=== PATIENT | male | born 1960 | race Caucasian/White ===

== ENCOUNTER 2022-11-13 12:35 | Emergency (ER) | payer OTHER, SELFPAY ==
[2022-11-13 12:48] VITALS: BP 177/95; PULSE 82; RESP 18; TEMP 36.6; O2SAT 94; BMI 28.4
--- NOTE | 2022-11-13 13:48 | ED.EYEPROB ---
HPI - Eye Problem General Chief complaint: Eye Problems Stated complaint: Blurred, spotted vision L eye Time Seen by Provider: 11/13/22 12:58 History of Present Illness HPI Narrative: This 62-year-old male comes in reporting visual changes in his left eye. He states that he noted some floaters over the past week and then for the past 3 days now he has very blurry vision in his left eye only. He does not report any nausea, vomiting, pain, headache, excessive tearing, or neurologic deficit. Related Data Home Medications Medication Instructions Recorded Confirmed albuterol sulfate 90 mcg/actuation 2 puff inhalation Q4-6H PRN 11/13/22 11/13/22 aerosol inhaler mometasone-formoterol HFA 200 2 puff inhalation 11/13/22 mcg-5 mcg/actuation aerosol inhaler (Dulera) montelukast 10 mg tablet 10 mg PO QPM 11/13/22 11/13/22 umeclidinium 62.5 mcg/actuation 1 inh inhalation DAILY 11/13/22 11/13/22 blister powder for inhalation (Incruse Ellipta) Allergies Allergy/AdvReac Type Severity Reaction Status Date / Time No Known Drug Allergies Allergy Verified 11/13/22 12:51 Review of Systems Status of ROS: Reports: 10 or more systems reviewed and unremarkable except as noted in History and below Narrative: Constitutional: No fevers, no weight gain or loss. Eyes: No discharge. Visual changes as described above. HENT: No congestion, no sore throat, no ear pain. Cardiovascular: No chest pain, no palpitations. Respiratory: No shortness of breath, no wheezes, no cough. Gastrointestinal: No abdominal pain, no vomiting, no diarrhea. Genitourinary: No dysuria, no hematuria. Musculoskeletal: Normal range of motion. Skin: No rashes, no pruritis. Neurological: No dizziness, weakness, sensory change, speech change. Endo/Heme/Allergies: No bruising or bleeding. No polydipsia. Pysch: no suicidality, no anxiety, no insomnia. All other systems reviewed and are negative. [facility] Social History Smoking Status: Never smoker How often do you have a drink containing alcohol: 4 or more times a week How many standard drinks containing alcohol do you have on a typical day: 5 or 6 How often do you have six or more drinks on one occasion: Never AUDIT-C Alcohol total score: 6 Non-prescribed substance use: denies use Exam Narrative: Exam Narrative: Constitutional: Well-developed, well-nourished, no acute distress. HEENT: Normocephalic, atraumatic. Right funduscopic exam appears normal. Examination of the left eye shows normal appearing cornea and iris. Through the iris it is only dark bethea appearing. I am not able to see the retina. Neck: Normal range of motion. Nontender. Supple. Heart: Regular. No murmurs. Normal rate. Intact distal pulses. Lungs: Clear to auscultation. No chest discomfort. No wheezes, rhonchi, or rales. Abdomen: Normal bowel sounds. Nontender. No rebound tenderness. Genitalia: Deferred. Back: No midline tenderness. Normal range of motion. Extremities: Normal range of motion. No injury. Skin: Intact. No rash. Warm. No erythema or pallor. Neurologic: No altered sensation. No weakness. Alert and oriented. Psychiatric: No suicidality. No anxiety or depression. No insomnia. Nursing notes and vitals signs are reviewed. Const: Vital Signs, click to edit/add: Vital Signs - 24 hr 11/13/22 12:48 Temperature 97.8 F Pulse Rate [Right Pulse Oximeter] 82 Respiratory Rate 18 Blood Pressure [Ri ght Upper Arm] 177/95 H Pulse Oximetry 94 Oxygen Delivery Me thod Room Air Course Vital Signs Vital signs: Initial Vital Signs Temperature 97.8 F 11/13/22 12:48 Temperature Source Temporal Artery Scan 11/13/22 12:48 Pulse Rate 82 11/13/22 12:48 Respiratory Rate 18 11/13/22 12:48 Blood Pressure 177/95 H 11/13/22 12:48 Blood Pressure Mean 122 H 11/13/22 12:48 Blood Pressure Position Sitting 11/13/22 12:48 Pulse Oximetry 94 11/13/22 12:48 Oxygen Delivery Method Room Air 11/13/22 12:48 Vital Signs Temperature 97.8 F 11/13/22 12:48 Pulse Rate 82 11/13/22 12:48 Respiratory Rate 18 11/13/22 12:48 Blood Pressure 177/95 H 11/13/22 12:48 Pulse Oximetry 94 11/13/22 12:48 Oxygen Delivery Method Room Air 11/13/22 12:48 Temperature 97.8 F 11/13/22 12:48 Pulse Rate 82 11/13/22 12:48 Respiratory Rate 18 11/13/22 12:48 Blood Pressure 177/95 H 11/13/22 12:48 Pulse Oximetry 94 11/13/22 12:48 Oxygen Delivery Method Room Air 11/13/22 12:48 MDM - Eye Problem MDM Narrative Medical decision making narrative: This patient comes in with visual changes in the left eye as described above. He does not describe any flashes of light or a curtain coming down over his vision. He clearly has a change in the funduscopic exam of his left eye with rather opaque appearing findings when looking through the pupil. The patient does not have diabetes or any kind of bleeding or clotting disorder. He may have a cataract that is formed in this eye or possibly some bleeding in the eye. He does not report any trauma. I did speak with Dr. SHERRY hamm at [facility] who will be happy to see him there upon discharge from here to do a dilated eye exam. Discharge Plan Discharge Clinical Impression: Loss of vision Patient Disposition: Home w/ Parent or Adult Condition: Unchanged Additional Instructions: Upon discharge from the ER follow-up with Dr. Huff at [facility], [address] [place] [address]. Prescriptions: No Action montelukast 10 mg tablet 10 mg PO QPM albuterol sulfate 90 mcg/actuation HFA aerosol inhaler 2 puff INHALATION Q4-6H PRN Dulera 200-5 mcg/actuation HFA aerosol inhaler 2 puff INHALATION Incruse Ellipta 62.5 mcg/actuation blister with device 1 inh INHALATION DAILY Follow Up/Referrals: Erica Ramirez PA-C [Primary Care Provider] - Stand Alone Forms: [employer] Info Instructions
== END 2022-11-13 14:06 | disposition home or self-care (01) ==
PROVIDERS: Emergency Provider Emergency Medicine Emergency Medical Services; PCP Physician Assistant Medical
DX: H54.62 Unqualified visual loss, left eye, normal vision right eye (principal)
CPT/HCPCS: 99283; 99284

== ENCOUNTER 2023-05-13 23:10 | Emergency (ER) | payer OTHER, SELFPAY ==
[2023-05-13 23:17] VITALS: BP 153/89; PULSE 96; RESP 16; TEMP 36.4; O2SAT 93; BMI 27.7
--- NOTE | 2023-05-13 23:32 | ED.GENADULT ---
HPI - General Adult General Chief complaint: Extremity Pain/Injury, Lower Stated complaint: Severe pain r knee Time Seen by Provider: 05/13/23 23:32 History of Present Illness HPI narrative: R knee swollen and painful to move starting . slipped on ice on 05/09 but did not fall, felt like he hyper extended the knee. went to work the pain in knee has now become very bad. pain is constant, stays in knee area. worse when bearing wt. denies feeling a pop with the slip. took indomethacin around 1799 and 10 mg of oxycodone around 2129. very little relief after meds. has been applying ice does not help. 62-year-old man presenting to the emergency department with painful swollen right knee. Four days ago had a slip catching himself on the ice but there may have been a mild hyper extension. Was able to ambulate without notable difficulty. Two days ago started to have much more swelling and pain. Hurts to walk flex. Does have suspected history of gout and took some of his indomethacin as well as some residual oxycodone but was not able to get relief. Has also been trying ice. No fever. Has not had any suspected gout in this knee before. Has otherwise been struggling with some congestion in the setting of recent COVID diagnosis. Face feels full. Ears full. Cough. Wondering what he more he can do. Related Data Home Medications Medication Instructions Recorded Confirmed albuterol sulfate 90 mcg/actuation 2 puff inhalation Q4-6H PRN 11/13/22 05/13/23 aerosol inhaler mometasone-formoterol HFA 200 2 puff inhalation 11/13/22 mcg-5 mcg/actuation aerosol inhaler (Dulera) montelukast 10 mg tablet 10 mg PO QPM 11/13/22 05/13/23 umeclidinium 62.5 mcg/actuation 1 inh inhalation DAILY 11/13/22 05/13/23 blister powder for inhalation (Incruse Ellipta) Allergies Allergy/AdvReac Type Severity Reaction Status Date / Time No Known Drug Allergies Allergy Verified 11/13/22 12:51 Review of Systems Status of ROS: Reports: 6 or more systems reviewed and unremarkable except as noted in History and below [facility] Medical History Health care directive on file ?Z78.9 - Other specified health status (ICD-10) Social History Smoking Status: Never smoker How often do you have a drink containing alcohol: 4 or more times a week How many standard drinks containing alcohol do you have on a typical day: 5 or 6 How often do you have six or more drinks on one occasion: Never AUDIT-C Alcohol total score: 6 Non-prescribed substance use: denies use Exam Narrative: Exam Narrative: Pleasant. Clearly quite uncomfortable. Accompanied by spouse. Nasopharyngeal congestion is evident. Intermittent cough. Otherwise breathing easily. Heart in elevated but regular rate. Skin is warm and dry. Right knee is without inflammatory change. Not hypesthetic. Clearly with large anterior knee swelling. Generally tender to palpation. No laxity to varus or valgus stressors. With pain difficult to assess anterior-posterior drawer or Lexi's. I do not see injury to the skin here. Patella is located properly. No defect noted in patellar or flexor tendons or in musculature. Lower extremities without notable edema. Well-perfused. Const: Vital Signs, click to edit/add: Vital Signs - 24 hr 05/13/23 23:17 Temperature 97.6 F Pulse Rate [Left P ulse Oximeter] 96 Respiratory Rate 16 Blood Pressure [Ri ght Upper Arm] 153/89 H Pulse Oximetry 93 Oxygen Delivery Me thod Room Air Documenting provider has reviewed patient's vital signs: yes Course Vital Signs Vital signs: Initial Vital Signs Temperature 97.6 F 05/13/23 23:17 Temperature Source Temporal Artery Scan 05/13/23 23:17 Pulse Rate 96 05/13/23 23:17 Respiratory Rate 16 05/13/23 23:17 Blood Pressure 153/89 H 05/13/23 23:17 Blood Pressure Mean 110 H 05/13/23 23:17 Pulse Oximetry 93 05/13/23 23:17 Oxygen Delivery Method Room Air 05/13/23 23:17 Vital Signs Temperature 97.6 F 05/13/23 23:17 Pulse Rate 96 05/13/23 23:17 Respiratory Rate 16 05/13/23 23:17 Blood Pressure 153/89 H 05/13/23 23:17 Pulse Oximetry 93 05/13/23 23:17 Oxygen Delivery Method Room Air 05/13/23 23:17 Temperature 97.6 F 05/13/23 23:17 Pulse Rate 96 05/13/23 23:17 Respiratory Rate 16 05/13/23 23:17 Blood Pressure 153/89 H 05/13/23 23:17 Pulse Oximetry 93 05/13/23 23:17 Oxygen Delivery Method Room Air 05/13/23 23:17 Medications Administered Medications: Discontinued Medications Generic Name Dose Route Start Last Admin Trade Name Chucky PRN Reason Stop Dose Admin Ibuprofen 800 mg 05/13/23 23:44 05/13/23 23:55 Ibuprofen 400 Mg Tablet PO 05/13/23 23:45 800 mg ONCE ONE Administration Oxycodone/Acetaminophen 2 tab 05/13/23 23:44 05/13/23 23:59 Oxycodone/Apap 5-325 Tablet PO 05/13/23 23:45 2 tab ONCE ONE Administration Medical Decision Making MDM Narrative Medical decision making narrative: Would have concern for internal knee derangement. Possibly meniscal issue. Would look though for secondary evidence of avulsion fracture or other abnormality. Check labs looking for more latent infection. Can check uric acid though discussed results would not be definitive of the diagnosis for gout. The lack of significant pain response to even light touch seems atypical for gouty flare and further no redness. Maybe minimal calor. He would like some relief of the pain. Given ibuprofen and a couple tabs of Percocet; hopefully this will get us over the hump. X-ray of the knee reviewed by me looks to be unremarkable for acute bony abnormality. Anterior effusion noted. Radiology over-read as below Indication: Pain infusion. Technique: Right knee, 3 views. Comparison: None. Findings/impression: Bones: Alignment is normal. No fractures or bone lesions. Joint spaces: Large suprapatellar fusion.. Soft tissues: Soft tissue swelling surrounding the knee.. Pain is improved with treatment as above. Normal uric acid. CRP rather elevated. COVID related? Normal white count. Suppressed lymphocytes consistent with COVID Did discuss potential tap. I am not too concerned of infection here though. Fluid likely to reaccumulate. Mr. Quezada understandably decided to defer this to follow-up if necessary. See patient discharge plan Lab Data Lab results reviewed: Yes I reviewed the patient's lab results Labs: Lab Results 05/13/23 Range/Units 23:45 WBC 10.76 (4.50-11.00) K/uL RBC 4.81 (4.30-5.90) m/uL Hgb 15.1 (13.5-17.5) gm/dL Hct 43.9 (37.0-53.0) % MCV 91 (80-100) fL MCH 31 (26-34) pg MCHC 34 (32-36) gm/dL RDW Coeff of Albert 11.3 L (11.5-15.5) % Plt Count 232 (140-440) K/uL Neut % (Auto) 81.6 H (42.0-72.0) % Lymph % (Auto) 6.3 L (20-44) % [place] % (Auto) 11.2 H (0.0-11.0) % Eos % (Auto) 0.4 (0.0-7.0) % Baso % (Auto) 0.3 (0.0-3.0) % Neut # (Auto) 8.80 H (1.7-7.0) K/uL Lymph # (Auto) 0.70 L (0.90-2.90) K/uL [place] # (Auto) 1.20 H (0.00-0.90) K/UL Eos # (Auto) 0.04 (0.00-0.50) K/uL Baso # (Auto) 0.03 (0.00-0.30) K/uL Abs Immat Gran (auto) 0.02 (0.00-0.30) K/uL Imm/Tot Granulo (auto) 0.2 % Uric Acid 6.6 (2.2-8.4) mg/dL C-Reactive Protein 16.9 H (0.5-1.0) mg/dL Discharge Plan Discharge Clinical Impression: Suprapatellar effusion of knee, SARS-CoV-2 positive, URI (upper respiratory infection), Knee pain Patient Disposition: Home w/ Parent or Adult Condition: Improved Additional Instructions: I think some period of immobility using this knee immobilizer (again can cut out over the top of the knee if more comfortable) might be helpful to limit persistent aggravation and effusion. It short term and with little food week take ibuprofen maybe 600 mg 3 times daily or up to 500 mg naproxen 2 times daily; probably regularly for 5-7 days. For worse pain, Percocet from [facility]. Prednisone prescribed from [facility]. This should help your cough somewhat and might help congestion. Otherwise for congestion can take pseudoephedrine; this does come in a 12 hour formulation. Guaifenesin might be helpful with mucus thinning perhaps. Stay well hydrated with water If knee isn't improved in a week, please follow-up. Be seen/return otherwise for marked increase in uncontrolled and persistent pain, increasing redness and particularly associated fever. Prescriptions: No Action montelukast 10 mg tablet 10 mg PO QPM albuterol sulfate 90 mcg/actuation HFA aerosol inhaler 2 puff INHALATION Q4-6H PRN Dulera 200-5 mcg/actuation HFA aerosol inhaler 2 puff INHALATION Incruse Ellipta 62.5 mcg/actuation blister with device 1 inh INHALATION DAILY Follow Up/Referrals: Erica Ramirez PA-C [Primary Care Provider] - Stand Alone Forms: [facility] Info Instructions
--- NOTE | 2023-05-13 23:45 | CRLHL7_ITS ---
For Patients: As a result of the Century Cures Act, medical imaging exams and procedure reports are released immediately into your electronic medical record. You may view this report before your referring provider. If you have questions, please contact your health care provider. Indication: Pain infusion. Technique: Right knee, 3 views. Comparison: None. Findings/impression: Bones: Alignment is normal. No fractures or bone lesions. Joint spaces: Large suprapatellar fusion.. Soft tissues: Soft tissue swelling surrounding the knee.. Dictated by Mic Miller MD @ 05/14/2023 12:29:09 AM (Electronically Signed)
--- OUTSIDE RECORDS SUMMARY | 2023-05-13 23:52 | XMS_ITS | Continuity of Care Document ---
Author Name Unknown Organization [facility] Address [address] [address] [place] [address] Phone Care Team Providers Care Service Loss Control Consultant Name Role Phone Abhishek CORRIEEvelyn Unavailable Unavailable Allergies, Adverse Reactions, Alerts Substance Reaction Status Criticality No Known Allergies Active No Inform ation WARNIN allergy(ies) could not be collected because the type is not supported. Please contact the source practice for further details. Medications Medication Instructions Dosage Effective Dates (start - stop) Status Comments Dulera 200 mcg-5 mcg/actuation HFA aerosol inhaler inhale 2 puff by inhalation route 2 times every day in the morning and evening 2.00 puff - Active Ventolin HFA 90 mcg/actuation aerosol inhaler inhale 2 puff by inhalation route every 6 hours as needed 2 puff - Active montelukast 10 mg tablet take 1 tablet by oral route every day in the evening 10 MG - Active Flovent Diskus 50 mcg/actuation powder for inhalation inhale 1 puff by inhalation route 2 times every day 50 MCG - No Longer Active Procedures Procedure Date Colonoscopy Flex; W/remov Les- Level Iv-surg Path Gross/micro 22 Colonoscopy Flex; W/remov Les- 16 Colonoscopy Flex; W/bx 1/mx Level Iv-surg Path Gross/micro 16 Advance Directives Directive Yes / No Effective Date File Name No Information Encounters Encounter Description Practice Location Reason(s) For Visit Diagnoses Date Provider Providers Copied on Encounter [facility], [address] [address], [place], [place], [id number], [place] tel:[phone] [facility] No Information 2 Abhishek CORRIE Evelyn. [address] [facility], [address], [id number], [place]. tel:[phone] Referring Provider: Jasmeet Lopes, [address], [address]. tel:[phone] [facility], [address] [address], [place], [place], [id number], [place] tel:[phone] [facility] GI Symptoms or Concerns (chief complaint) Dvrtclos of lg int w/o perforation or abscess w/o bleedingPolyp of colonEncounter for screening for malignant neoplasm of colonPersonal history of colonic polypsBenign neoplasm of transverse colonDvrtclos of lg int w/o perforation or abscess w/o bleedingBenign neoplasm of transverse colon 2 Yovani Alamo. [address], [id number], [place]. tel:[phone] Referring Provider: Referral Self, USE FOR SELF REFERRALS. [facility], [address] [address], [place], [place], [id number], [place] tel:[phone] [facility] No Information 2 Yovani Alamo. [address], [id number], [place]. tel:[phone] [facility], [address] [address], [place], [place], [id number], [place] tel:[phone] [facility] Benign colon polypDiverticulo sis of colon without hemorrhageEncoun ter for screening for malignant neoplasm of colonBenign neoplasm of cecumBenign neoplasm of ascending colonBenign neoplasm of sigmoid colon 0 6 Kyle Aguilar. [address], [id number], [place]. tel:[phone] Family History Family Member Type Diagnosis Age At Onset Sister Problem (finding) Leukemia Brother Problem (finding) Asthma Mother Problem (finding) Asthma Son Problem (finding) Crohn's disease Father Problem (finding) Cancer, gastric Father Problem (finding) Leukemia Immunizations Vaccine Date Status Comments SARS-COV-2 (COVID-19) vaccin e, mRNA, spike protein, LNP, preservative free, 30 mcg/0.3mL dose administered Note: [facility] bi-direct ional interface ; Source: Other Registry SARS-COV-2 (COVID-19) vaccin e, mRNA, spike protein, LNP, preservative free, 30 mcg/0.3mL dose administered Note: [facility] bi-direct ional interface ; Source: Other Registry Influenza, seasonal, injectable administe red Note: [facility] bi- directional interface ; Source: Other Registry Influenza, seasonal, injecta ble, preservative free administered Note: [facility] bi-direct ional interface ; Source: Other Registry Pneumovax 23 administered Note: [facility] bi-d irectional interface ; Source: Other Registry Payers Payer name Insurance type Covered green party ID Authoriza tion(s) No Information Social History Type Description Quantity Date Captured Comments Sex Male Smoking Status No Information Chief Complaint And Reason For Visit No Information Reason For Referral Reason For Referral No Information History Of Present Illness Encounter Date Complaint History Of Prese nt Illness GI Symptoms or Concerns Functional Status Date Functional Assessmen t No Information Instructions Date Instruction Additional Infor mation Diverticulosis/Diverticulitis Re lated to Dvrtclos of lg int w/o perforation or abscess w/o bleeding Colon Polyps Related to Dvrtc los of lg int w/o perforation or abscess w/o bleeding Colon Cancer Prevention Related to Dvrtclos of lg int w/o perforation or abscess w/o bleeding Colon Cancer Prevention Related to Benign colon polyp Colon Polyps Related to Benig n colon polyp Diverticulosis/Diverticulitis Re lated to Benign colon polyp High Fiber Diet Related to Thomas paiz colon polyp Assessments Type Assessment Date No Information Patient Care Teams Name Effective Dates (start - stop) Status Members No Information
[2023-05-13] MEDS: IBUPROFEN 400 MG TABLET 800 MG PO (23:55)
[2023-05-13] MEDS: OxyCODONE/APAP 5-325 TABLET 2 TAB PO (23:59)
[2023-05-14 00:12] LABS: Basophils Absolute Auto 0.03 K/uL (0.00-0.30); Basophils Percent Auto 0.3 % (0.0-3.0); Eosinophils Absolute Auto 0.04 K/uL (0.00-0.50); Eosinophils Percent Auto 0.4 % (0.0-7.0); Hematocrit 43.9 % (37.0-53.0); Hemoglobin* 15.1 gm/dL (13.5-17.5); Immature Granulocytes Abs Auto 0.02 K/uL (0.00-0.30); Immature Granulocytes Pct Auto 0.2 %; Lymphocytes Percent Auto 6.3 % (20-44); Mean Corpuscular HGB Conc 34 gm/dL (32-36); Mean Corpuscular Hemoglobin 31 pg (26-34); Mean Corpuscular Volume 91 fL (80-100); Monocytes Percent Auto 11.2 % (0.0-11.0); Neutrophils Percent Auto 81.6 % (42.0-72.0); Platelet Count* 232 K/uL (140-440); RDW Coefficient of Variation % 11.3 % (11.5-15.5); Red Blood Count 4.81 m/uL (4.30-5.90); Slide Review Reflex No; White Blood Count* 10.76 K/uL (4.50-11.00)
[2023-05-14 00:34] LABS: Uric Acid* 6.6 mg/dL (2.2-8.4)
[2023-05-14 00:50] LABS: C Reactive Protein* 16.9 mg/dL (0.5-1.0)
== END 2023-05-14 01:28 | disposition home or self-care (01) ==
PROVIDERS: Emergency Provider Family Medicine; PCP Physician Assistant Medical
DX: M25.461 Effusion, right knee (principal); U07.1 COVID-19; W00.9XXA Unspecified fall due to ice and snow, initial encounter
CPT/HCPCS: 36415; 73562; 84550; 85025; 86140; 99284; A9270

== ENCOUNTER 2023-08-11 09:16 | Day surgery (SDC) | payer OTHER, SELFPAY ==
[2023-08-11] VITALS (12 sets, daily range): BP systolic 129–153; BP diastolic 75–104; PULSE 76–95; RESP 14–19; TEMP 36.4–36.7; O2SAT 91–96; BMI 27.7
[2023-08-11] MEDS: LACTATED RINGERS 1000 ML 1,000 ML 100 ML IV (09:55)
[2023-08-11] MEDS: SODIUM CHLORIDE 0.9 % (FLUSH) 10 ML SYRINGE IVF (10:05)
[2023-08-11] MEDS: CIPROFLOX/DEXAMETH OTIC (nc) 4 DROP EAR-RIGHT (10:36)
--- NOTE | 2023-08-11 10:49 | W.PM.ENTPROC ---
Procedure Note Date of procedure: 08/11/23 Procedure: Preprocedure diagnosis right eustachian tube dysfunction and serous otitis media Postprocedure diagnosis same Procedure right myringotomy and placement of permanent to Under general endotracheal anesthesia patient was prepped draped usual fashion. The right ear canal was inspected an inferior radial myringotomy incision was made. A small amount of mucoid fluid was aspirated. A T-tube was trimmed and then placed without difficulty. There is a small abrasion on the canal. Ciprodex drops were then placed. The patient procedure well was taken recovery in satisfactory condition. Blood loss was 0. Surgeon: Cam Leija MD
--- NOTE | 2023-08-11 10:51 | W.ANESCHARGE ---
Anesthesia Charges Start Date/Time Anesthesia Start Date: 08/11/23 Anesthesia Start Time: 10:13 Stop Date/Time Anesthesia Stop Date: 08/11/23 Anesthesia Stop Time: 10:52
== END 2023-08-11 12:33 | disposition home or self-care (01) ==
LOC: OR 09:16
PROVIDERS: PCP Physician Assistant Medical; Visit Provider Otolaryngology
PROC: (CPT 69420; principal; 2023-08-11 10:30)
DX: H65.01 Acute serous otitis media, right ear (principal); H73.891 Other specified disorders of tympanic membrane, right ear
CPT/HCPCS: 69436; 00120; J0330; J1100; J2250; J2405; J2704; J3010; J7120

== ENCOUNTER 2023-08-30 19:37 | Outpatient (CLI) | payer OTHER, SELFPAY ==
--- OUTSIDE RECORDS SUMMARY | 2023-08-30 19:41 | XMS_ITS | Referral Summary ---
Author Name Unknown Organization [facility] Address [address] [place] [address] Care Team Providers Care Tennis Racket Repairer Name Role Phone Unavailable Primary Care Provider Unavailabl e Allergies Active Allergy Reactions Criticality Noted Date Comments Seasonal Allergies 02/05/2010 Itchy eyes, running nose, difficulty breathing Medications Medication Sig Dispensed Refills Start Date End Date Status cetirizine (ZYRTEC) 10 MG tabletIndications:[place] allergic rhinitis Take 1 tablet (10 mg) by mouth every evening 90 tablet 3 01/27/2016 Active fluticasone-salmetero l (ADVAIR) 500-50 MCG/DOSE diskus inhalerIndications:Mo derate persistent asthma without complication Inhale 1 puff into the lungs 2 times daily 3 Inhaler 3 06/21/2017 Active fluticasone (FLONASE) 50 MCG/ACT sprayIndications:Distillation Operator dionne non-seasonal allergic rhinitis, unspecified trigger [place] 1-2 sprays into both nostrils daily 1 Bottle 11 06/21/2017 Active albuterol (PROAIR HFA/PROVENTIL HFA/VENTOLIN HFA) 108 (90 Base) MCG/ACT inhalerIndications:Mo derate persistent asthma without complication Inhale 2 puffs into the lungs every 4 hours as needed for shortness of breath / dyspnea 1 Inhaler 06/25/2018 Active Active Problems Problem Noted Date Diagnosed Date Chronic allergic rhinitis 06/21/2017 Moderate persistent asthma 09/10/2010 Resolved Problems Problem Noted Date Diagnosed Date Resolved Date Weight loss, intentional 09/12/2012 CARDIOVASCULAR SCREENING; LD L GOAL LESS THAN 160 09/10/2010 01/27/2016 Allergic state 09/10/2010 01/20/2014 Overview: (Problem list name updated by automated process. Provider to review and confirm.) Mild persistent asthma 09/10 Overview: Follows with Dr Marion Immunizations Name Administration Dates Next Due Influenza (IIV3) PF 06/24/2011,02/05/2010 Pneumococcal 23 valent 02/05/2010 TD,PF 7+ (Tenivac) 11/05/2009 Tetanus 11/05/2009,06/08/2003 Social History Tobacco Use Types Packs/Day Years Used Date Smoking Tobacco: Former Cigarettes Smokeless Tobacco: Current Chew Tobacco Cessation:Ready to Q uit: Yes Comments:Chews Grizzly, about one tin every 3-4 days Alcohol Use Standard Drinks/Week Comments Yes 15 (1 standard drink = 0.6 oz pure alcohol) About 3 beers three nights weekly PHQ-2 Answer Date Recorded PHQ-2 Score 0 05/15/2018 Adolescent Education Answer Date Record ed Getting School Help Needed Not on file 02/01 Sex and Gender Information Value Date Recorded Sex Assigned at Not on file Gender Identity Not on file Sexual Orientation Not on file Last Filed Vital Signs Vital Sign Reading Time Taken Comments Blood Pressure 134/82 06/21/2017 8:05 AM PANTOGRAPH I ENGRAVER Pulse 88 06/21/2017 8:05 AM PANTOGRAPH I ENGRAVER Temperature 36.8 ??C (98.3 ??F) 06/21/2017 8:05 AM CS T Respiratory Rate 16 01/20/2014 2:03 PM CDT Oxygen Saturation 96% 06/21/2017 8:05 AM PANTOGRAPH I ENGRAVER Inhaled Oxygen Concentration - - Weight 95.3 kg (210 lb 1.6 oz) 06/21/2017 8:05 A M PANTOGRAPH I ENGRAVER Height 184.2 cm (6' 0.5) 06/21/2017 8:05 AM PANTOGRAPH I ENGRAVER Body Mass Index 28.1 06/21/2017 8:05 AM PANTOGRAPH I ENGRAVER Plan of Treatment Not on file
--- OUTSIDE RECORDS SUMMARY | 2023-08-30 19:41 | XMS_ITS | Clinical Summary ---
Author Name Unknown Organization [facility] Address [address] [place] [address] Care Team Providers Care Weighmaster Name Role Phone Unavailable Primary Care Provider [...] 3 06/21/2017 Active fluticasone (FLONASE) 50 MCG/ACT sprayIndications:[employer] dionne non-seasonal allergic rhinitis, unspecified trigger [place] 1-2 sprays into both nostrils daily 1 [...] 02/05/2010 TD,PF 7+ (Tenivac) 11/05/2009 Tetanus 11/05/2009,06/08/2003 Family History Medical History Relation Comments Family History Negative Brother Born [birth year] 2 Thyroid Disease Brother Born 1953 Blood Disease Father of lymphoma or leukemia at age 77 Family History Negative Mother Born [birth year] 7 Family History Negative Sister Born lat e 1950's Relation Status Comments Brother Father Mother Sister Social History Tobacco Use Types Packs/Day Years [...] Comments Blood Pressure 134/82 06/21/2017 8:05 AM RANGE OPERATOR Pulse 88 06/21/2017 8:05 AM RANGE OPERATOR Temperature 36.8 ??C (98.3 ??F) 06/21/2017 8:05 AM CS T Respiratory Rate 16 01/20/2014 2:03 PM CDT Oxygen Saturation 96% 06/21/2017 8:05 AM RANGE OPERATOR Inhaled Oxygen Concentration - - Weight 95.3 kg (210 lb 1.6 oz) 06/21/2017 8:05 A M RANGE OPERATOR Height 184.2 cm (6' 0.5) 06/21/2017 8:05 AM RANGE OPERATOR Body Mass Index 28.1 06/21/2017 8:05 AM RANGE OPERATOR Plan of Treatment Not on file
--- NOTE | 2023-09-13 11:36 | W.PM.SLEEP ---
Sleep Study Details Details Interpreting Provider: Liss Date of Sleep Study: 08/30/23 Sleep Study Details: STUDY TYPE:? Home unattended ? BMI:? Not recorded ORDERING PROVIDER:? Liss INDICATION:? Concerns about sleep apnea ? SLEEP SUMMARY:? 500.8 minutes monitored RESPIRATORY SUMMARY:? AHI 20.7 Low oxygen 80 63.8% of study oxygen less than 90% Snoring 76.6% PERIODIC LIMB MOVEMENTS OF SLEEP:? Not recorded CARDIAC:? Range 45-100, mean 72.5 IMPRESSION:? Moderate obstructive sleep apnea with significant hypo oxygenation during 64% of the study RECOMMENDATION: Recommend in-lab titration due to a due to amount of hypo oxygenation. Once effective therapy is established would recommend overnight oximetry.
== END 2023-08-30 19:38 | disposition home or self-care (01) ==
PROVIDERS: Visit Provider Otolaryngology
DX: G47.33 Obstructive sleep apnea (adult) (pediatric) (principal)
CPT/HCPCS: 95806

== ENCOUNTER 2024-07-12 11:13 | Emergency (ER) | payer OTHER, SELFPAY ==
--- OUTSIDE RECORDS SUMMARY | 2024-07-12 11:15 | XMS_ITS | Clinical Summary ---
Author Organization [facility] Address [address] [place] [address] Care Team Providers Care Podiatric Physician Name Role Phone Unavailable Primary Care Provider Unavailabl e Allergies Active Allergy Reactions Criticality Noted Date Comments Seasonal Allergies 02/05/2010 Itchy eyes, running nose, difficulty breathing Medications cetirizine (ZYRTEC) 10 MG tabletIndications :Seasonal allergic rhinitis Take 1 tablet (10 mg) by mouth every evening 90 tablet 3 6 Active fluticasone-salme terol (ADVAIR) 500-50 MCG/DOSE diskus inhalerIndication s:Moderate persistent asthma without complication Inhale 1 puff into the lungs 2 times daily 3 Inhaler 3 8 Active fluticasone (FLONASE) 50 MCG/ACT sprayIndications: Chronic non-seasonal allergic rhinitis, unspecified trigger [place] 1-2 sprays into both nostrils daily 1 Bottle 11 8 Active albuterol (PROAIR HFA/PROVENTIL HFA/VENTOLIN HFA) 108 (90 Base) MCG/ACT inhalerIndication s:Moderate persistent asthma without complication Inhale 2 puffs into the lungs every 4 hours as needed for shortness of breath / dyspnea 1 Inhaler 9 Active Active Problems Problem Noted Date Diagnosed Date Chronic allergic rhinitis 06/21/2017 Moderate persistent asthma 09/10/2010 Resolved Problems Problem Noted Date Diagnosed Date Resolved Date Weight loss, intentional 09/12/2012 CARDIOVASCULAR SCREENING; LD L GOAL LESS THAN 160 09/10/2010 01/27/2016 Allergic state 09/10/2010 01/20/2014 Overview (02/06/2012): (Problem list name updated by automated process. 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
[2024-07-12 11:41] VITALS: BP 186/98; PULSE 85; RESP 22; TEMP 36.7; O2SAT 90; BMI 29.0
--- NOTE | 2024-07-12 11:45 | ED.GENADULT ---
HPI - General Adult General Time Seen by Provider: 11:45 Date Seen: 07/12/24 Chief complaint: Shortness of Breath/Dyspnea Stated complaint: Asthma exacerbation Time Seen by Provider: 07/12/24 11:43 Source: patient and RN notes reviewed Mode of arrival: ambulatory Limitations: no limitations History of Present Illness HPI narrative: This 63-year-old male with underlying asthma is coming in with shortness of breath and dyspnea on exertion. About a month ago he traveled to [facility], ended up with a presumed viral upper respiratory infection. He started with some congestion, had some cough, felt better after about a week. Since then he feels like he is inflamed in his chest, feels like he can not even exercise, cannot do stairs without feeling tight in wheezy. He has an albuterol inhaler as well as nebs at home. The neb helps longer if he is not doing anything, will only make him feel better for about 10 minutes if he tries to go do anything such as stairs or exerts himself. There is no chest pain. There is no fever. He has not noted any edema. His eyes have felt itchy but are not mattering, not draining. Does have a history of allergen induced asthma. He is on Encruse Ellipta as well as Advair and has been taking them. He also uses montelukast 10 mg daily. He is not having chest pain like he thinks this is his heart or anything of that nature. Related Data Home Medications ?Medication ?Instructions ?Recorded ?Confirmed albuterol sulfate 90 mcg/actuation 2 puff inhalation Q4-6H PRN 11/13/22 07/12/24 aerosol inhaler montelukast 10 mg tablet 10 mg PO QPM 11/13/22 07/12/24 fluticasone 250 mcg-salmeterol 50 inhalation 07/12/24 mcg/dose blistr powdr for inhalation Previous Rx's ?Medication ?Instructions ?Recorded apixaban 5 mg tablet (Eliquis) 5 mg PO BID #60 tabs 07/12/24 Allergies Allergy/AdvReac Type Severity Reaction Status Date / Time penicillin V Allergy Mild Rash Verified 01/23/24 14:07 Review of Systems Status of ROS: Reports: 6 or more systems reviewed and unremarkable except as noted in History and below PFSH PFSH Medical History Sensation of plugged ear ?H93.8X9 - Other specified disorders of ear, unspecified ear (ICD-10) Moderate persistent asthma ?J45.40 - Moderate persistent asthma, uncomplicated (ICD-10) Gout ?M10.9 - Gout, unspecified (ICD-10) Ear problem ?H93.90 - Unspecified disorder of ear, unspecified ear (ICD-10) Disorder of paranasal sinus ?J34.9 - Unspecified disorder of nose and nasal sinuses (ICD-10) Health care directive on file ?Z78.9 - Other specified health status (ICD-10) Family History Father Gout Social History Smoking Status: Never smoker Do you use any of these nicotine containing products: None How often do you have a drink containing alcohol: 4 or more times a week Alcohol type: hard liquor How many standard drinks containing alcohol do you have on a typical day: 3 or 4 How often do you have six or more drinks on one occasion: Never AUDIT-C Alcohol total score: 5 Non-prescribed substance use: denies use Caffeine: Yes Exam Const: Vital Signs, click to edit/add: Vital Signs - 24 hr 07/12/24 11:41 07/12/24 13:11 07/12/24 13:21 Temperature 98.1 F Pulse Rate 58 L Pulse Rate [Pulse Oximeter] 85 Respiratory Rate 22 16 Blood Pressure [Ri ght Upper Arm] 186/98 H Pulse Oximetry 90 92 90 Oxygen Delivery Me thod Room Air This 63-year-old male is alert, interactive, no apparent distress, sitting up on the edge of the bed. Pupils equal round, sclera clear, conjugate gaze, symmetrical facial function. Neck supple, no jugular venous distension, no cervical adenopathy noted, no neck masses. Lungs with prolonged expiratory phase, poor air entry, tight sound in with end expiratory wheezing heard throughout. CV regular rate and rhythm, no murmur, normal S1-S2. He does not have any tachypnea or any accessory muscle use at this time. He absolutely has no pretibial pitting edema. He was ambulatory into the ED of his own accord. Documenting provider has reviewed patient's vital signs: yes Course Course ED Course: This 63-year-old male most certainly has asthma exacerbation. Will be doing pre and post neb analysis, will do a neb with a DuoNeb. Will get chest x-ray, monitor with pulse oximetry. Given his travel, elevated blood pressure, will look at D-dimer. Likely asthma exacerbation which could have been precipitated by virus. Need to consider underlying infectious etiology including atypical pneumonia, new viral infection. Could be allergic mediated. Do for see he is likely going to need prednisone. Will consider cardiac as well as thromboembolic disease in this differential as well. Will start with chest x-ray but may need to proceed with chest CT imaging. Reevaluation(s) Time of Reevaluation #1: 12:56 Reevaluation #1: Patient reportedly did not change his pre and post neb peak flow. His D-dimer has come back significantly elevated at 2.51. We are going to proceed with chest CT PE protocol to rule out venous thromboembolic disease. Patient is updated on plan, agrees to proceed. Time of Reevaluation #2: 13:51 Reevaluation #2: Have reviewed with patient his CT report. He has mild bilateral burden of pulmonary emboli without any evidence of right heart strain on the CT. Likewise his EKG and troponin are not congruent with any heart strain. He is borderline low on his oxygenation at times at 90%, have not seen him go below this. We went over in depth pulmonary emboli. He has not had a history of any blood clots before. Will have him follow up with his primary care provider, they will need to decide if he can come off after certain period, can consider referral to physician office specialist. Did discuss the possible small pulmonary infarct, he has no pain right now. With this diagnosis of pulmonary emboli, reviewed with him that I do not think that this is his asthma. Certainly his lung function can be affected by the pulmonary emboli but we discussed it is a gas exchange issue and lack of oxygenation of the blood. I do not want to start prednisone at this time as he absolutely needs blood thinners, have reviewed risks and benefits of anticoagulation. Will use Eliquis. Will give him his 1st dose of Eliquis here. Consultations Consultation #1: The radiologist called to let me know that there were pulmonary emboli and wanted me to review the report. Time: 13:47 Vital Signs Vital signs: Initial Vital Signs Temperature 98.1 F 07/12/24 11:41 Temperature Source Temporal Artery Scan 07/12/24 11:41 Pulse Rate 85 07/12/24 11:41 Respiratory Rate 22 07/12/24 11:41 Blood Pressure 186/98 H 07/12/24 11:41 Blood Pressure Mean 127 H 07/12/24 11:41 Pulse Oximetry 90 07/12/24 11:41 Oxygen Delivery Method Room Air 07/12/24 11:41 Vital Signs Temperature 98.1 F 07/12/24 11:41 Pulse Rate 85 07/12/24 11:41 Respiratory Rate 22 07/12/24 11:41 Blood Pressure 186/98 H 07/12/24 11:41 Pulse Oximetry 90 07/12/24 11:41 Oxygen Delivery Method Room Air 07/12/24 11:41 Temperature 98.1 F 07/12/24 11:41 Pulse Rate 58 L 07/12/24 13:11 Respiratory Rate 16 07/12/24 13:11 Blood Pressure 186/98 H 07/12/24 11:41 Pulse Oximetry 90 07/12/24 13:21 Oxygen Delivery Method Room Air 07/12/24 11:41 Medications Administered Medications: Discontinued Medications Generic Name Dose Route Start Last Admin Trade Name Freq PRN Reason Stop Dose Admin Albuterol/Ipratropium 1 neb 07/12/24 12:04 07/12/24 12:14 Iprat-Albut 0.5-2.5 Mg/3 Ml Neb IH 07/12/24 12:05 1 neb ONCE ONE Administration Apixaban 10 mg 07/12/24 14:03 07/12/24 14:25 Apixaban 5 Mg Tablet PO 07/12/24 14:04 10 mg ONCE ONE Administration Medical Decision Making Lab Data Lab results reviewed: Yes I reviewed the patient's lab results Labs: Lab Results 07/12/24 Range/Units 12:07 WBC 7.13 (4.50-11.00) K/uL RBC 5.07 (4.30-5.90) m/uL Hgb 16.3 (13.5-17.5) gm/dL Hct 48.1 (37.0-53.0) % MCV 95 (80-100) fL MCH 32 (26-34) pg MCHC 34 (32-36) gm/dL RDW Coeff of Albert 12.4 (11.5-15.5) % Plt Count 238 (140-440) K/uL Neut % (Auto) 67.2 (42.0-72.0) % Lymph % (Auto) 16.5 L (20-44) % [place] % (Auto) 9.0 (0.0-11.0) % Eos % (Auto) 6.0 (0.0-7.0) % Baso % (Auto) 1.0 (0.0-3.0) % Neut # (Auto) 4.79 (1.7-7.0) K/uL Lymph # (Auto) 1.20 (0.90-2.90) K/uL [place] # (Auto) 0.60 (0.00-0.90) K/UL Eos # (Auto) 0.43 (0.00-0.50) K/uL Baso # (Auto) 0.07 (0.00-0.30) K/uL Abs Immat Gran (auto) 0.02 (0.00-0.30) K/uL Imm/Tot Granulo (auto) 0.3 % D-Dimer Quant (PE/DVT) 2.51 H (0.00-0.50) ug/ml VBG pH 7.414 (7.32-7.43) VBG pCO2 44 (40-50) mmHG VBG pO2 35.7 (25-47) mmHG VBG HCO3 28 (21-28) mmol/L Sodium 139 (135-149) mmol/L Potassium 4.2 (3.6-5.1) mmol/L Chloride 101 (96-114) mmol/L Carbon Dioxide 26 (20-32) mmol/L Anion Gap 12 (7-15) mEq/L BUN 13 (7-30) mg/dL Creatinine 0.9 (0.5-1.5) mg/dL Estimated Creat Clear 85.45 Estimated GFR 96 ml/min Glucose 107 (60-115) mg/dL Calcium 9.6 (8.4-10.6) mg/dL Magnesium 1.9 (1.5-2.6) mg/dL Troponin I < 0.01 L (0.01-0.04) ng/mL C-Reactive Protein 1.0 (0.5-1.0) mg/dL NT-Pro-B Natriuret Pep 355 pg/mL Procalcitonin 0.08 (<0.50) ng/mL SARS-CoV-2 (PCR) Negative SARS-CoV-2 (Negative) Influenza Type A (PCR) Negative PCR FLU A (Negative) Influenza Type B (PCR) Negative PCR FLU B (Negative) RSV (PCR) Negative PCR RSV (Negative) Imaging Data Chest x-ray: Attestation: I have reviewed the pertinent imaging results. My impression: I see no acute pathology on my preliminary review. Radiologist's impression: Patient: [facility] Facility:?[facility] Patient ID:?[id number] Site Patient ID:?[id number]. Site :?[id number] Study:?XRay-Chest 2v-07/12/2024 12:45:32 PM Ordering Physician:?Chandana Hill Final Report: Indication: Asthma, shortness of breath Technique: Chest 2 views Comparison: None Findings/Impression: Cardiovascular and mediastinum: Heart size and vasculature are normal in caliber and appearance. Mediastinum is within normal limits. Lungs and pleural spaces: No pleural effusion or pneumothorax. Discoid atelectasis within the right middle lobe. Bones and soft tissues: Old right 8th rib fracture posterolaterally. Dictated by Lan Estrada MD @ 07/12/2024 12:58:11 PM (Electronic Signature) CT scan - chest: Attestation: I have reviewed the pertinent imaging results. Radiologist's impression: Patient: [facility] Facility:?[facility] Patient ID:?[id number] Site Patient ID:?[id number]. Site :?1960 Study:?CT-Chest Angio PE STUDY-07/12/2024 1:27:50 PM Ordering Physician:?Chandana Hill Final Report: Indication: Shortness of breath, [place], elev d dimer Technique: CTA chest, pulmonary embolism protocol, utilizing Comparison: None Findings: No thyroid nodules. No thoracic lymphadenopathy. The heart is normal in size. No CT evidence of right heart strain. Coronary artery calcifications. The thoracic aorta and pulmonary artery are normal in caliber. Mild bilateral pulmonary emboli burden seen in a few of the segmental arteries of all the lung lobes. No focal airspace consolidation, pleural effusion, or pneumothorax. Minimal amount of atelectasis in the right middle lobe and lingula. Subpleural ground-glass opacity in the right middle lobe, favored to represent a small focus of pulmonary infarction. Solid, sub 4 millimeter, subpleural pulmonary nodule in the right middle lobe (series number 4, image 125), likely benign. The airways are clear. The imaged upper abdomen is without acute abnormality. Diffuse hepatic steatosis. The bones are unremarkable in appearance for the patient`s age. Impression: 1. Mild bilateral pulmonary emboli burden seen in a few of the segmental arteries of all the lung lobes without evidence of right heart strain. 2. Subpleural ground-glass opacity in the right middle lobe, favored to represent a small focus of pulmonary infarction. 3. Solid, sub 4 millimeter, subpleural pulmonary nodule in the right middle lobe. If patient is at high risk for developing lung malignancy consider CT chest in 1 year. Please note that all CT scans at this facility use dose modulation, iterative reconstruction, and/or weight-based dosing when appropriate to reduce radiation dose to as low as reasonably achievable. Dictated by Zafar Anthony MD @ 07/12/2024 1:45:14 PM (Electronic Signature) ECG Data Attestation: I personally reviewed and interpreted this ECG as follows: (Sinus rhythm at 74 beats per minute. PVCs seen which are unifocal. No ischemic change otherwise noted.) Prior ECG tracings: not available for review Discharge Plan Discharge Clinical Impression: Pulmonary embolism Patient Disposition: Home, Self-Care Condition: Stable Instructions: Pulmonary Embolism (ED), Blood Thinners (ED) Additional Instructions: You will be on Eliquis which is a blood thinner. You will take 10 mg twice a day for 7 days, your 1st dose was given here today. Would take a 2nd dose tonight before bed. Tomorrow, start in the morning and try to schedule this twice a day with a 12 hour interval between doses. After the 1st 7 days of 10 mg, you will then go to 5 mg twice a day. You need to follow-up with your primary care provider within the next week for recheck. You may develop some discomfort on the right side with a pulmonary infarct, take Tylenol if needed for pain. You should not take aspirin or NSAIDs while on this blood thinner unless advised by a physician. Your primary care provider should get you scheduled for an outpatient echo within the next couple of weeks. Take the CT report to your primary care provider for follow-up. If you develop increasing shortness of breath, fever, have uncontrolled pain, do recommend re-evaluation in the interim. Activity Level: Activity as Tolerated Prescriptions: New Eliquis 5 mg tablet 5 mg PO BID Qty: 60 0RF Rx Instructions: 10mg twice a day for 13 more doses (complete 7 days at 10mg twice a day, 1st dose given in ED). Then will be taking 5mg twice a day. No Action montelukast 10 mg tablet 10 mg PO QPM albuterol sulfate 90 mcg/actuation HFA aerosol inhaler 2 puff INHALATION Q4-6H PRN fluticasone propion-salmeterol 250-50 mcg/dose blister with device INHALATION Patient Comments: INHALE 1 DOSE BY MOUTH TWICE DAILY IN THE MORNING AND IN THE EVENING , APPROXIMATELY 12 HOURS APART Follow Up/Referrals: Santos Rossi MD [Referring] - Stand Alone Forms: [employer] Info Instructions
--- OUTSIDE RECORDS SUMMARY | 2024-07-12 12:00 | XMS_ITS | Clinical Summary ---
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 Not on file Not on f ile Last Filed Vital Signs Vital Sign Reading Time Taken Comments Blood Pressure 134/82 06/21/2017 8:05 AM THERAPEUTIC CONSULTANT Pulse 88 06/21/2017 8:05 AM THERAPEUTIC CONSULTANT Temperature 36.8 C (98.3 F) 06/21/2017 8:05 AM THERAPEUTIC CONSULTANT Respiratory Rate 16 01/20/2014 2:03 PM CDT Oxygen Saturation 96% 06/21/2017 8:05 AM THERAPEUTIC CONSULTANT Inhaled Oxygen Concentration - - Weight 95.3 kg (210 lb 1.6 oz) 06/21/2017 8:05 A M THERAPEUTIC CONSULTANT Height 184.2 cm (6' 0.5) 06/21/2017 8:05 AM THERAPEUTIC CONSULTANT Body Mass Index 28.1 06/21/2017 8:05 AM THERAPEUTIC CONSULTANT Plan of Treatment Not on file
[2024-07-12 12:13] LABS: HCO3 VBG 28 mmol/L (21-28); PCO2 VBG 44 mmHG (40-50); PO2 VBG 35.7 mmHG (25-47); pH VBG 7.414 (7.32-7.43)
[2024-07-12] MEDS: IPRAT-ALBUT 0.5-2.5 MG/3 ML NEB 1 NEB IH (12:14)
[2024-07-12 12:19] LABS: Basophils Absolute Auto 0.07 K/uL (0.00-0.30); Eosinophils Absolute Auto 0.43 K/uL (0.00-0.50); Hematocrit 48.1 % (37.0-53.0); Hemoglobin* 16.3 gm/dL (13.5-17.5); Immature Granulocytes Abs Auto 0.02 K/uL (0.00-0.30); Immature Granulocytes Pct Auto 0.3 %; Lymphocytes Percent Auto 16.5 % (20-44); Mean Corpuscular HGB Conc 34 gm/dL (32-36); Mean Corpuscular Hemoglobin 32 pg (26-34); Mean Corpuscular Volume 95 fL (80-100); Neutrophils Absolute Auto 4.79 K/uL (1.7-7.0); Neutrophils Percent Auto 67.2 % (42.0-72.0); Platelet Count* 238 K/uL (140-440); RDW Coefficient of Variation % 12.4 % (11.5-15.5); Red Blood Count 5.07 m/uL (4.30-5.90); White Blood Count* 7.13 K/uL (4.50-11.00)
[2024-07-12 12:22] LABS: Slide Review Reflex No
[2024-07-12 12:42] LABS: Chloride* 101 mmol/L (96-114); Potassium* 4.2 mmol/L (3.6-5.1); Sodium* 139 mmol/L (135-149)
[2024-07-12 12:45] LABS: Anion Gap 12 mEq/L (7-15); Blood Urea Nitrogen* 13 mg/dL (7-30); Carbon Dioxide* 26 mmol/L (20-32); Creatinine* 0.9 mg/dL (0.5-1.5); Est. Creatinine Clearance* 85.45; Estimated Glomerular Filt Rate 96 ml/min; Glucose* 107 mg/dL (60-115)
[2024-07-12 12:46] LABS: Calcium* 9.6 mg/dL (8.4-10.6); Magnesium* 1.9 mg/dL (1.5-2.6)
[2024-07-12 12:49] LABS: D Dimer Quantitative* 2.51 ug/ml (0.00-0.50)
--- NOTE | 2024-07-12 12:57 | CRLHL7_ITS ---
For Patients: As a result of the Century Cures Act, medical imaging exams and procedure reports are released immediately into your electronic medical record. You may view this report before your referring provider. If you have questions, please contact your health care provider. Indication: Shortness of breath, [place], elev d dimer Technique: CTA chest, pulmonary embolism protocol, utilizing Comparison: None Findings: No thyroid nodules. No thoracic lymphadenopathy. The heart is normal in size. No CT evidence of right heart strain. Coronary artery calcifications. The thoracic aorta and pulmonary artery are normal in caliber. Mild bilateral pulmonary emboli burden seen in a few of the segmental arteries of all the lung lobes. No focal airspace consolidation, pleural effusion, or pneumothorax. Minimal amount of atelectasis in the right middle lobe and lingula. Subpleural ground-glass opacity in the right middle lobe, favored to represent a small focus of pulmonary infarction. Solid, sub 4 millimeter, subpleural pulmonary nodule in the right middle lobe (series number 4, image 125), likely benign. The airways are clear. The imaged upper abdomen is without acute abnormality. Diffuse hepatic steatosis. The bones are unremarkable in appearance for the patient`s age. Impression: 1. Mild bilateral pulmonary emboli burden seen in a few of the segmental arteries of all the lung lobes without evidence of right heart strain. 2. Subpleural ground-glass opacity in the right middle lobe, favored to represent a small focus of pulmonary infarction. 3. Solid, sub 4 millimeter, subpleural pulmonary nodule in the right middle lobe. If patient is at high risk for developing lung malignancy consider CT chest in 1 year. Please note that all CT scans at this facility use dose modulation, iterative reconstruction, and/or weight-based dosing when appropriate to reduce radiation dose to as low as reasonably achievable. Dictated by Zafar Anthony MD @ 07/12/2024 1:45:14 PM (Electronically Signed)
[2024-07-12 13:03] LABS: Procalcitonin* 0.08 ng/mL (<0.50)
[2024-07-12 13:05] LABS: NT Pro B Type NatriureticPept* 355 pg/mL; Troponin I* < 0.01 ng/mL (0.01-0.04)
[2024-07-12 13:07] LABS: PCR FLU A Negative PCR FLU A (Negative); PCR FLU B Negative PCR FLU B (Negative); PCR RSV Negative PCR RSV (Negative); SARS PCR* Negative SARS-CoV-2 (Negative)
[2024-07-12 13:11] VITALS: PULSE 58; RESP 16; O2SAT 92
[2024-07-12 13:21] VITALS: O2SAT 90
[2024-07-12] MEDS: APIXABAN 5 MG TABLET 10 MG PO (14:25)
== END 2024-07-12 14:51 | disposition home or self-care (01) ==
PROVIDERS: Emergency Provider Family Medicine
DX: I26.99 Other pulmonary embolism without acute cor pulmonale (principal)
CPT/HCPCS: 36415; 71046; 71275; 80048; 82803; 83735; 83880; 84145; 84484; 85025; 85379; 86140; 87631; 93005; 94761; 99285; A9270; Q9967

== ENCOUNTER 2024-10-17 12:30 | Outpatient (CLI) | payer OTHER, SELFPAY ==
--- NOTE | 2024-10-17 13:00 | CRLHL7_ITS ---
For Patients: As a result of the Century Cures Act, medical imaging exams and procedure reports are released immediately into your electronic medical record. You may view this report before your referring provider. If you have questions, please contact your health care provider. INDICATION: Hypercoagulability state per shortness of breath. TECHNIQUE: Multiplanar CT pulmonary angiogram was performed after the administration of 95 mL of Isovue 370 intravenous contrast. COMPARISON: CTA chest 07/12/2024. FINDINGS: Lower neck: The visualized thyroid is unremarkable. Cardiovascular: Contrast opacification of the pulmonary arterial tree is adequate. Heart size is normal. Thoracic aorta and pulmonary artery are normal in caliber. No significant atherosclerotic calcifications of the aortic arch. Coronary arterial calcifications. Persistent tiny pulmonary emboli within the subsegmental branches of the right lower lobe, overall decreased clot burden when compared to the prior CT from 07/12/2024 (5:123). Mediastinum and lymph nodes: Unremarkable. No pathologic mediastinal or hilar lymphadenopathy by size criteria. Lungs: No focal consolidation. Dependent atelectasis. Linear bandlike opacification of the lung bases bilaterally, likely subsegmental atelectasis and/or scarring. Grossly unchanged subcentimeter subpleural nodule in the right middle lobe measuring 3 mm (6:121). Airways: Trachea remains patent and midline. Mild diffuse peribronchial wall thickening. Pleura: No pleural effusions or pneumothorax. Chest wall: Unremarkable. Prominent axillary lymph nodes that do not meet size criteria for lymphadenopathy. Bones: No acute osseous abnormalities. Mild degenerative changes of the thoracic spine. Upper abdomen: No acute findings in the visualized upper. No reflux of contrast material into the IVC. IMPRESSION: 1. Overall decreased clot burden of the persistent, known small pulmonary emboli within the subsegmental branches of the right lower lobe. No CT evidence of right heart strain. 2. Dense coronary arterial calcifications. Please note that all CT scans at this facility use dose modulation, iterative reconstruction, and/or weight-based dosing when appropriate to reduce radiation dose to as low as reasonably achievable. Dictated by Prieto Bennett MD @ 10/20/2024 9:33:39 AM (Electronically Signed)
[2024-10-17 13:08] LABS: Estimated Glomerular Filt Rate 84 ml/min
== END 2024-10-17 12:31 | disposition home or self-care (01) ==
PROVIDERS: Visit Provider Internal Medicine
DX: J45.40 Moderate persistent asthma, uncomplicated (principal); I25.10 Atherosclerotic heart disease of native coronary artery without angina pectoris; I26.99 Other pulmonary embolism without acute cor pulmonale; D68.59 Other primary thrombophilia
CPT/HCPCS: 36415; 71275; 82565; Q9967

== ENCOUNTER 2025-04-18 13:34 | Outpatient (CLI) | payer OTHER, SELFPAY ==
--- NOTE | 2025-04-18 14:00 | CRLHL7_ITS ---
For Patients: As a result of the Century Cures Act, medical imaging exams and procedure reports are released immediately into your electronic medical record. You may view this report before your referring provider. If you have questions, please contact your health care provider. INDICATION: Follow-up nodule, follow-up PE TECHNIQUE: CT chest PE was acquired with 95 cc Isovue 370 IV contrast. COMPARISON: CT angio chest PE October 17, 2024 FINDINGS: Heart and vasculature: Contrast opacification of the pulmonary arterial tree is adequate. No sign of pulmonary embolism. Persistent very minimal clot burden within the segmental branches of right lower lobe. No evidence of right ventricular strain. Cardiac size is within normal limits without pericardial effusion. Thoracic aorta and pulmonary artery are of normal caliber. Coronary artery calcification. Lungs and pleura: Stable 3 millimeter perifissural nodule of the right middle lobe, 5/118. No effusion or pneumothorax. No focal infiltrate. Lymph nodes/mediastinum: No suspicious adenopathy. Chest wall: No masses. Upper abdomen: No acute abnormality. Small hiatal hernia. Bones: Degenerative changes of the spine. No concerning bony lesion. IMPRESSION: Persistent very minimal clot burden in the segmental right lower lobe pulmonary arteries. No interval change. Stable stephanie-fissural right middle lobe solid nodule. No suspicious nodule. Please note that all CT scans at this facility use dose modulation, iterative reconstruction, and/or weight-based dosing when appropriate to reduce radiation dose to as low as reasonably achievable. Dictated by Megan Brown MD @ 04/21/2025 10:35:56 AM (Electronically Signed)
[2025-04-18 14:02] LABS: Creatinine* 1.1 mg/dL (0.5-1.5); Estimated Glomerular Filt Rate 75 ml/min
== END 2025-04-18 13:35 | disposition home or self-care (01) ==
LOC: CT 13:34
PROVIDERS: Visit Provider Internal Medicine
DX: R91.1 Solitary pulmonary nodule (principal); I26.94 Multiple subsegmental thrombotic pulmonary emboli without acute cor pulmonale; D68.59 Other primary thrombophilia; J45.40 Moderate persistent asthma, uncomplicated
CPT/HCPCS: 36415; 71275; 82565; Q9967